=== PATIENT | male | born 1945 | race Caucasian/White ===

== ENCOUNTER 2018-03-03 10:48 | Emergency (ER) | payer OTHER ==
[2018-03-03 11:34] LABS: Absolute Monocytes 1.3 K/uL (0.1-1.3); Absolute Neutrophil 7.8 K/uL (1.8-8.0); Basophils % 0.5 % (0-1.3); Eosinophils % 0.6 % (0-4.4); Hematocrit 37.3 % (39.6-49.0); MPV 7.7 fL (7.6-11.3); Monocytes % 12.3 % (3.3-12.3); RBC Red Blood Cell Count 3.96 M/uL (4.33-5.43)
[2018-03-03 11:35] LABS: Protime INR 1.54
[2018-03-03] MEDS ORDERED: NITROGLYCERIN 0.4 MG/TAB SL ONE (11:38)
[2018-03-03] MEDS ORDERED: ASPIRIN 81 MG CHEWABLE TABLET ONE ×2 (11:38→11:39)
[2018-03-03 11:53] LABS: ALT/SGPT 25 U/L (12-78); AST/SGOT 15 U/L (15-37); Albumin 2.6 g/dL (3.4-5.0); Alkaline Phosphatase 86 U/L (45-117); BUN Blood Urea Nitrogen 13 mg/dL (7-18); Bicarbonate 26 mmol/L (21-32); Bilirubin Direct 0.3 mg/dL (0-0.2); Glucose Level 83 mg/dL (74-106); Magnesium 2.4 mg/dL (1.8-2.4); NT PRO-BNP 380 pg/mL (<450); Protein, Total 7.5 g/dL (6.4-8.2); Sodium Level 135 mmol/L (136-145); Troponin (Emerg Dept Use Only) < 0.02 ng/mL (0.0-0.045)
--- NOTE | 2018-03-03 11:59 | RAD REPORT ---
EXAM DESCRIPTION: Jasmin Single View03/03/2018 11:21 am CLINICAL HISTORY: Chest pain COMPARISON: none FINDINGS: Left basilar opacity. Right lung appears clear. Heart is moderately enlarged IMPRESSION: Left basilar opacity likely representing pneumonia. This should be followed until it is clear to help exclude a post obstructive process/underlying mass
[2018-03-03] MEDS ORDERED: NA CHLORIDE 0.9% 500 ML ONE (12:15)
[2018-03-03] MEDS ORDERED: KETOROLAC 30 MG/ML INJ ONE ×2 (13:06→13:32)
--- NOTE | 2018-03-03 13:43 | RAD REPORT ---
EXAM DESCRIPTION: CT - Chest For Pe Angio - 03/03/2018 1:09 pm CLINICAL HISTORY: Chest pain COMPARISON: None. TECHNIQUE: Dynamically enhanced axial 3 mm thick images of the chest were obtained during administra tion of <100> mL Isovue 370 IV contrast. Coronal and oblique reconstruction images were generated and reviewed. Exam utilizes a protocol for optimal evaluation of pulmonary arterial tree. Maximum intensity projections 3D imaging was utilized All CT scans are performed using dose optimization technique as appropriate and may include automated exposure control or mA/KV adjustment according to patient size. FINDINGS: A pulmonary embolus is not seen. A thoracic aortic aneurysm is not noted. A small to moderate left pleural effusion is not seen. A moderate pericardial effusion is present. Tiny right pleural effusion Left lower lobe atelectasis IMPRESSION: Negative for a pulmonary embolism. Moderate pericardial effusion Small to moderate left pleural effusion with left lower lobe atelectasis
--- NOTE | 2018-03-03 17:42 | EDPHYS ---
Physician Documentation [facility] Name: Nate Gallegos Age: 73 yrs Sex: Male : 1945 Arrival Date: 03/03/2018 Time: 10:49 Bed 24 Private MD: ED Physician Fernando Ji HPI: 03/03 11:06 This 73 yrs old Male presents to ER via Unassigned with complaints of Chest cp Pain. 11:06 The patient or guardian reports chest pain that is located primarily in the left breast.cp 11:06 Onset: 1 week(s) ago. The pain radiates to the left arm, the left shoulder. Associated cp signs and symptoms: Pertinent positives: shortness of breath, Pertinent negatives: abdominal pain, cough, diaphoresis, dizziness, lower extremity pain, lower extremity swelling, palpitations, recent travel, syncope, vomiting. The chest pain is described as dull, sharp. Duration: The patient or guardian reports multiple episodes, that are intermittent, that wax and wane. Modifying factors: the symptoms are aggravated by nothing. Historical: - Allergies: 11:21 No Known Allergies; aj - Home Meds: 11:21 carvedilol 12.5 mg oral tab [Active]; atorvastatin 20 mg oral tab 1 tab once daily aj [Active]; isosorbide mononitrate 60 mg Oral Tb24 1 tab once daily [Active]; clopidogrel 75 mg oral tab 1 tab once daily [Active]; - PMHx: 11:21 Hypertension; Hyperlipidemia; Atrial Fib; aj - PSHx: 11:21 Carotid surgery; aj - Immunization history:: Adult Immunizations up to date. - Social history:: Smoking status: Patient/guardian denies using tobacco, Patient uses alcohol, on a daily basis. patient/guardian reports chronic longstanding heavy alcohol consumption. - Ebola Screening: : Patient negative for fever greater than or equal to 101.5 degrees Fahrenheit, and additional compatible Ebola Virus Disease symptoms Patient denies exposure to infectious person Patient denies travel to an Ebola-affected area in the 21 days before illness onset No symptoms or risks identified at this time. ROS: 11:14 Eyes: Negative for injury, pain, redness, and discharge. cp 11:14 Constitutional: Negative for body aches, chills, fever, poor PO intake. 11:14 ENT: Negative for drainage from ear(s), ear pain, sore throat, difficulty swallowing, difficulty handling secretions. 11:14 Neck: Negative for pain with movement, pain at rest, stiffness, tenderness, bony tenderness. 11:14 Cardiovascular: Positive for chest pain, Negative for edema, palpitations. 11:14 Respiratory: Positive for shortness of breath, Negative for cough, wheezing. 11:14 Abdomen/GI: Negative for abdominal pain, nausea, vomiting, and diarrhea, constipation, black/tarry stool, rectal bleeding. 11:14 Back: Negative for pain at rest, pain with movement, radiated pain. 11:14 : Negative for urinary symptoms. 11:14 Neuro: Positive for general weakness, Negative for altered mental status, dizziness, headache, syncope, near syncope. 11:14 All other systems are negative. Exam: 11:11 ECG was reviewed by the Attending Physician. cp 11:20 Constitutional: The patient appears in no acute distress, alert, awake, cp non-diaphoretic, non-toxic, well developed, well nourished, uncomfortable. 11:20 Head/Face: Normocephalic, atraumatic. Eyes: Pupils equal round and reactive to light, cp extra-ocular motions intact. Lids and lashes normal. Conjunctiva and sclera are non-icteric and not injected. Cornea within normal limits. Periorbital areas with no swelling, redness, or edema. ENT: Nares patent. No nasal discharge, no septal abnormalities noted. Tympanic membranes are normal and external auditory canals are clear. Oropharynx with no redness, swelling, or masses, exudates, or evidence of obstruction, uvula midline. Mucous membranes moist. Neck: Trachea midline, no thyromegaly or masses palpated, and no cervical lymphadenopathy. Supple, full range of motion without nuchal rigidity, or vertebral point tenderness. No Meningismus. Chest/axilla: Normal chest wall appearance and motion. Nontender with no deformity. No lesions are appreciated. 11:20 Cardiovascular: Rate: normal, Rhythm: regular, Pulses: Pulses are 2+ in right radial artery and left radial artery. Heart sounds: murmur, not appreciated, rub, not appreciated, gallop, not appreciated, Edema: is not appreciated, JVD: is not appreciated. 11:20 Respiratory: the patient does not display signs of respiratory distress, Respirations: normal, no use of accessory muscles, no retractions, no splinting, no tachypnea, labored breathing, is not present, Breath sounds: are clear throughout, no decreased breath sounds, no stridor, no wheezing. 11:20 Abdomen/GI: Inspection: obese Bowel sounds: active, all quadrants, Palpation: abdomen is soft and non-tender, in all quadrants, rebound tenderness, is not appreciated, voluntary guarding, is not appreciated, involuntary guarding, is not appreciated. 11:20 Back: pain, is absent, ROM is normal. 11:20 Musculoskeletal/extremity: Exam is negative for decreased range of motion, deformity, injury. 11:20 Skin: cellulitis, is not appreciated, no rash present. 11:20 Neuro: Orientation: to person, place \T\ time. Mentation: is normal, Cerebellar function: is grossly normal, Motor: is normal, Sensation: is normal. Vital Signs: 11:21 BP 140 / 71; Pulse 61; Resp 18; Temp 98.4; Pulse Ox 98% on R/A; Weight 90.72 kg; Height aj 5 ft. 8 in. (172.72 cm); 11:55 BP 138 / 75; Pulse 60; Resp 18; Pulse Ox 97% on R/A; aj 13:27 BP 148 / 76; Pulse 60; Resp 19; Pulse Ox 97% on R/A; aj 14:25 BP 139 / 76; Pulse 60; Resp 17; Pulse Ox 97% on R/A; aj 15:00 BP 136 / 79; Pulse 57 MON; Resp 18 S; Pulse Ox 96% on R/A; rv 15:30 BP 147 / 75; Pulse 60 MON; Resp 22 S; Pulse Ox 96% on R/A; rv 16:00 BP 144 / 78; Pulse 60 MON; Resp 23 S; Pulse Ox 97% on R/A; rv 16:30 BP 152 / 81; Pulse 62 MON; Resp 18 S; Pulse Ox 97% on R/A; rv 17:00 BP 134 / 70; Pulse 60 MON; Resp 17 S; Pulse Ox 96% on R/A; rv 17:30 BP 136 / 66; Pulse 60 MON; Resp 22 S; Pulse Ox 97% on R/A; rv 18:00 BP 144 / 70; Pulse 60 MON; Resp 20 S; Pulse Ox 98% on R/A; rv 18:30 BP 142 / 74; Pulse 59 MON; Resp 20 S; Pulse Ox 96% on R/A; rv 19:00 BP 134 / 72; Pulse 60; Resp 23 S; Pulse Ox 97% on R/A; rv 19:30 BP 145 / 76; Pulse 57; Resp 20 S; Pulse Ox 97% on R/A; rv 20:00 BP 144 / 74; Pulse 60; Resp 23; Pulse Ox 96% on R/A; rv 20:30 BP 135 / 72; Pulse 59; Resp 19 S; Pulse Ox 97% on R/A; rv 21:00 BP 141 / 64; Pulse 59; Resp 18 S; Pulse Ox 97% on R/A; rv 21:30 BP 149 / 85; Pulse 58; Resp 20 S; Pulse Ox 95% on R/A; rv 22:00 BP 128 / 75; Pulse 74; Resp 21 S; Pulse Ox 96% on R/A; rv 11:21 Body Mass Index 30.41 (90.72 kg, 172.72 cm) aj MDM: 10:58 Patient medically screened. 18:00 Data reviewed: vital signs. pm1 18:20 Physician consultation: Hourly [employer] Staff [facility] regarding regarding transfer, pm1 consult, patient's condition, Will be available for consult if needed. Admit to ICU and he will need cardiology consult. 18:28 Physician consultation: Hospitalist [facility] was contacted at 18:28, pm1 regarding regarding transfer, patient's condition, and will see patient. 03/03 11:07 Order name: Basic Metabolic Panel; Complete Time: 12:00 03/03 13:33 Interpretation: Normal except: NA 135; GFR 88. 03/03 11:07 Order name: CBC with Diff; Complete Time: 12:00 03/03 13:33 Interpretation: Normal except: RBC 3.96; HGB 12.9; HCT 37.3; ZACK% 76.6; LYM% 10.0. 03/03 11:07 Order name: LFT's; Complete Time: 12:00 03/03 13:52 Interpretation: Normal except: BILID 0.3; ALB 2.6; GLOB 4.9; A/G 0.5. 03/03 11:07 Order name: Magnesium; Complete Time: 12:00 03/03 11:07 Order name: NT PRO-BNP; Complete Time: 12:00 cp 03/03 11:07 Order name: PT-INR; Complete Time: 12:00 03/03 13:53 Interpretation: Abnormal: PT 18.3. 03/03 11:07 Order name: Troponin (emerg Dept Use Only); Complete Time: 12:00 cp 03/03 11:07 Order name: XRAY Chest (1 view); Complete Time: 12:01 03/03 13:34 Interpretation: Report review. 03/03 12:02 Order name: LAB Add On 03/03 12:09 Order name: D-Dimer; Complete Time: 13:33 EDMS 03/03 13:33 Interpretation: Abnormal: D-DIMER [id number]. 03/03 12:32 Order name: Chest For PE Angio CT; Complete Time: 13:50 cp 03/03 17:34 Interpretation: Report reviewed. 03/03 11:07 Order name: EKG; Complete Time: 11:09 03/03 11:07 Order name: Cardiac monitoring; Complete Time: 11:25 03/03 11:07 Order name: EKG - Nurse/Tech; Complete Time: 11:26 cp 03/03 11:07 Order name: IV Saline Lock; Complete Time: 11:26 03/03 11:07 Order name: Labs collected and sent; Complete Time: 11:26 03/03 11:07 Order name: O2 Per Protocol; Complete Time: 11: 03/03 11:07 Order name: O2 Sat Monitoring; Complete Time: 11:26 cp EC:11 Rate is 62 beats/min. Rhythm is regular. NV interval is normal. QRS interval is cp prolonged at 110 msec. QT interval is normal. T waves are Inverted in leads V2, V3. Interpreted by me. Reviewed by me. Administered Medications: 11:31 Drug: Nitroglycerin 0.4 mg Route: Sublingual; aj 12:35 Follow up: Response: Pain is unchanged, physician notified aj 11:32 Drug: Aspirin Chewable Tablet 324 mg Route: PO; aj 12:35 Follow up: Response: No adverse reaction aj 12: Drug: NS 0.9% 1000 ml Route: IV; Rate: 100 ml/hr; Site: right forearm; aj 22:32 Follow up: IV Status: Completed infusion rv 12:09 Drug: NS 0.9% 250 ml Route: IV; Rate: bolus; Site: right forearm; aj 22:31 Follow up: IV Status: Infusion continued upon transfer rv 13:26 Drug: TORadol 30 mg Route: IVP; Site: left forearm; aj 17:56 Follow up: Response: Pain is decreased rv Disposition: 03/03/18 17:[address] [facility]. Diagnosis are Chest pain, unspecified, Pericardial effusion (noninflammatory). - Reason for transfer: Higher level of care. - Accepting physician is Doctor. - Condition is Stable. - Problem is new. - Symptoms have improved. Addendum: 03/07/2018 15:24 Co-signature as Attending Physician, Fernando Ji MD. m a2 Signatures: Dispatcher [employer] EDMaryellen Ca, RN RN Willie Nielsen PA PA cp Tj Reis, CALL MANAGER CALL MANAGER pm1 Fernando Ji MD MD ma2 Juan Miguel Roberto RN RN rv Corrections: (The following items were deleted from the chart) 03/03 22:33 17:41 03/03/2018 17:[address] [facility]. Diagnosis is rv Chest pain, unspecified; Pericardial effusion (noninflammatory). Reason for transfer: Higher level of care. Accepting physician is Doctor. Condition is Stable. Problem is new. Symptoms have improved. cp
--- NOTE | 2018-03-03 17:42 | ER ---
Nurse's Notes [facility] Name: Nate Gallegos Age: 73 yrs Sex: Male : 1945 Arrival Date: 03/03/2018 Time: 10:49 Bed 24 Private MD: Diagnosis: Chest pain, unspecified;Pericardial effusion (noninflammatory) Presentation: 03/03 11:15 Presenting complaint: Patient states: Left lateral chest pain that radiates to left aj axilla for 1 week. Patient reports pain is worse with drinking and with movement. Pain is reproducible with palpation and deep inspiration. Denies cough or fever. Transition of care: patient was not received from another setting of care. Onset of symptoms was February 24, 2018. Risk Assessment: Do you want to hurt yourself or someone else? Patient reports no desire to harm self or others. Initial Sepsis Screen: Does the patient meet any 2 criteria? No. Patient's initial sepsis screen is negative. Does the patient have a suspected source of infection? No. Patient's initial sepsis screen is negative. Care prior to arrival: None. 11:15 Method Of Arrival: Ambulatory 11:15 Acuity: VIRI 3 Triage Assessment: 11:21 General: Appears in no apparent distress. uncomfortable, Behavior is calm, cooperative, aj appropriate for age. Pain: Complains of pain in left lateral anterior chest, anterior aspect of left shoulder and left axilla. Neuro: Level of Consciousness is awake, alert, obeys commands, Oriented to person, place, time, situation, Appropriate for age. Cardiovascular: Capillary refill < 3 seconds in bilateral fingers Patient's skin is warm and dry. Respiratory: Airway is patent Respiratory effort is even, unlabored, Respiratory pattern is regular, symmetrical. Respiratory: Reports pain with respiration. Derm: Skin is intact, is healthy with good turgor, Skin is pink, warm \T\ dry. normal. Historical: - Allergies: 11:21 No Known Allergies; aj - Home Meds: 11:21 carvedilol 12.5 mg oral tab [Active]; atorvastatin 20 mg oral tab 1 tab once daily aj [Active]; isosorbide mononitrate 60 mg Oral Tb24 1 tab once daily [Active]; clopidogrel 75 mg oral tab 1 tab once daily [Active]; - PMHx: 11:21 Hypertension; Hyperlipidemia; Atrial Fib; aj - PSHx: 11:21 Carotid surgery; aj - Immunization history:: Adult Immunizations up to date. - Social history:: Smoking status: Patient/guardian denies using tobacco, Patient uses alcohol, on a daily basis. patient/guardian reports chronic longstanding heavy alcohol consumption. - Ebola Screening: : Patient negative for fever greater than or equal to 101.5 degrees Fahrenheit, and additional compatible Ebola Virus Disease symptoms Patient denies exposure to infectious person Patient denies travel to an Ebola-affected area in the 21 days before illness onset No symptoms or risks identified at this time. Screenin:24 Abuse screen: Denies threats or abuse. Denies injuries from another. Nutritional aj screening: No deficits noted. Tuberculosis screening: No symptoms or risk factors identified. Fall Risk None identified. Assessment: 11:24 Reassessment: See triage. aj 13:26 Reassessment: Patient appears in no apparent distress at this time. No changes from aj previously documented assessment. Patient and/or family updated on plan of care and expected duration. Pain level reassessed. Patient is alert, oriented x 3, equal unlabored respirations, skin warm/dry/pink. 14:25 Reassessment: Patient appears in no apparent distress at this time. No changes from aj previously documented assessment. Patient and/or family updated on plan of care and expected duration. Pain level reassessed. Patient is alert, oriented x 3, equal unlabored respirations, skin warm/dry/pink. Patient states feeling better. 18:50 Reassessment: Patient appears in no apparent distress at this time. Patient and/or rv family updated on plan of care and expected duration. Pain level reassessed. 18:54 Pain: Pain does not radiate. Pain began gradually. rv 20:17 Reassessment: Patient appears in no apparent distress at this time. Patient and/or rv family updated on plan of care and expected duration. Pain level reassessed. AWAITING TRANSPORT. Vital Signs: 11:21 BP 140 / 71; Pulse 61; Resp 18; Temp 98.4; Pulse Ox 98% on R/A; Weight 90.72 kg; Height aj 5 ft. 8 in. (172.72 cm); 11:55 BP 138 / 75; Pulse 60; Resp 18; Pulse Ox 97% on R/A; aj 13:27 BP 148 / 76; Pulse 60; Resp 19; Pulse Ox 97% on R/A; aj 14:25 BP 139 / 76; Pulse 60; Resp 17; Pulse Ox 97% on R/A; aj 15:00 BP 136 / 79; Pulse 57 MON; Resp 18 S; Pulse Ox 96% on R/A; rv 15:30 BP 147 / 75; Pulse 60 MON; Resp 22 S; Pulse Ox 96% on R/A; rv 16:00 BP 144 / 78; Pulse 60 MON; Resp 23 S; Pulse Ox 97% on R/A; rv 16:30 BP 152 / 81; Pulse 62 MON; Resp 18 S; Pulse Ox 97% on R/A; rv 17:00 BP 134 / 70; Pulse 60 MON; Resp 17 S; Pulse Ox 96% on R/A; rv 17:30 BP 136 / 66; Pulse 60 MON; Resp 22 S; Pulse Ox 97% on R/A; rv 18:00 BP 144 / 70; Pulse 60 MON; Resp 20 S; Pulse Ox 98% on R/A; rv 18:30 BP 142 / 74; Pulse 59 MON; Resp 20 S; Pulse Ox 96% on R/A; rv 19:00 BP 134 / 72; Pulse 60; Resp 23 S; Pulse Ox 97% on R/A; rv 19:30 BP 145 / 76; Pulse 57; Resp 20 S; Pulse Ox 97% on R/A; rv 20:00 BP 144 / 74; Pulse 60; Resp 23; Pulse Ox 96% on R/A; rv 20:30 BP 135 / 72; Pulse 59; Resp 19 S; Pulse Ox 97% on R/A; rv 21:00 BP 141 / 64; Pulse 59; Resp 18 S; Pulse Ox 97% on R/A; rv 21:30 BP 149 / 85; Pulse 58; Resp 20 S; Pulse Ox 95% on R/A; rv 22:00 BP 128 / 75; Pulse 74; Resp 21 S; Pulse Ox 96% on R/A; rv 11:21 Body Mass Index 30.41 (90.72 kg, 172.72 cm) ED Course: 10:49 Patient arrived in ED. as 10:58 Willie Tirado PA is PHCP. cp 10:58 Fernando Ji MD is Attending Physician. cp 11:08 EKG done, by refractory technician. reviewed by Willie RICHARDS. at1 11:15 Maryellen Hutchinson, RN is Primary Nurse. aj 11:17 Triage completed. aj 11:21 Arm band placed on right wrist. Patient placed in an exam room, on a stretcher, on aj media monitor, on pulse oximetry. EKG completed in triage. Results shown to MD. 11:22 X-ray completed. Portable x-ray completed in exam room. Patient tolerated procedure az well. 11:23 XRAY Chest (1 view) In Process Unspecified. EDMS 11:24 Inserted saline lock: 20 gauge in right forearm, using aseptic technique. Blood aj collected. Patient maintains SpO2 saturation greater than 95% on room air. 11:24 Patient has correct armband on for positive identification. media monitor on. Pulse aj ox on. NIBP on. 13:10 Chest For PE Angio CT In Process Unspecified. EDMS 18:33 PHCP role handed off by Willie Tirado PA pm1 18:33 Tj Reis NP is PHCP. pm1 22:32 No provider procedures requiring assistance completed. Patient transferred, IV remains rv in place. intact. Administered Medications: 11:31 Drug: Nitroglycerin 0.4 mg Route: Sublingual; aj 12:35 Follow up: Response: Pain is unchanged, physician notified aj 11:32 Drug: Aspirin Chewable Tablet 324 mg Route: PO; aj 12:35 Follow up: Response: No adverse reaction aj 12:09 Drug: NS 0.9% 1000 ml Route: IV; Rate: 100 ml/hr; Site: right forearm; aj 22:32 Follow up: IV Status: Completed infusion rv 12:09 Drug: NS 0.9% 250 ml Route: IV; Rate: bolus; Site: right forearm; aj 22:31 Follow up: IV Status: Infusion continued upon transfer rv 13:26 Drug: TORadol 30 mg Route: IVP; Site: left forearm; aj 17:56 Follow up: Response: Pain is decreased rv Outcome: 17:41 ER care complete, transfer ordered by . cp 22:32 Transferred by ground EMS to [facility], Transfer form completed. rv X-rays sent w/ patient. 22:32 Condition: stable 22:32 Instructed on the need for transfer. 22:33 Patient left the ED. rv Signatures: Dispatcher [employer] EDMS Maryellen Hutchinson, RN RN Jannet Mitchell Amanda, vegetable tier EKG Tat1 Willie Tirado PA PA cp Marinas, Patrick, RETAIL MAINTENANCE TECHNICIAN RETAIL MAINTENANCE TECHNICIAN pm1 Juan Miguel Roberto, RN RN Lea Barrientos
--- NOTE | 2018-03-05 06:31 | EKG ---
Test Date: 2018-03-03 Test Time: 11:01:18 Wafer Slicer: PRASHANT MEASUREMENT RESULTS: Intervals: Rate: 62 ME: 166 QRSD: 110 QT: 444 QTc: 450 [place]: P: 47 ME: 166 QRS: -55 T: 53 INTERPRETIVE STATEMENTS: Normal sinus rhythm Left anterior fascicular block Nonspecific T wave abnormality Abnormal ECG No previous ECG available for comparison Electronically Signed On 03-05-18 06:30:37 SERVICE CENTER COORDINATOR by Edwin Mendez
== END 2018-03-03 22:33 | disposition short-term general hospital (02) ==
LOC: ER 10:48
DX: I31.3 Pericardial effusion (noninflammatory) (principal); I10 Essential (primary) hypertension; E78.5 Hyperlipidemia, unspecified; I48.91 Unspecified atrial fibrillation
CPT/HCPCS: 36415; 71045; 71275; 80048; 80076; 83735; 83880; 84484; 85025; 85379; 85610; 93005; 96361; 96374; 99285; Q9967; 96365; 96366; 96375